=== PATIENT | male | born 1980 | race Caucasian/White ===

== ENCOUNTER 2022-08-31 17:18 | Emergency (ER) | payer BC ==
[2022-08-31] MEDS ORDERED: Ketorolac 30 MG/ML SDV IM ONE (17:55)
[2022-08-31] MEDS ORDERED: Diphtheria,Pertussis(Acell),Tetanus Vaccine 0.5 ML Syringe IM ONE (17:56)
[2022-08-31] MEDS ORDERED: HYDROmorphone 1 MG/ML Syringe IM ONE (17:56)
[2022-08-31] MEDS ORDERED: Bacitracin Oint 1 GM U/D Packet TOP ONE (18:14)
== END 2022-08-31 18:53 | disposition home or self-care (01) ==
LOC: JP.ED 17:18
DX: S62.666A Nondisplaced fracture of distal phalanx of right little finger, initial encounter for closed fracture (principal); Z88.8 Allergy status to other drugs, medicaments and biological substances; Z23 Encounter for immunization; V86.52XA Driver of snowmobile injured in nontraffic accident, initial encounter
CPT/HCPCS: 73140; 90471; 90715; 96372; 99283; J1170; J1885